=== PATIENT | female | born 1970 | race Caucasian/White ===

== ENCOUNTER 2024-09-17 13:19 | Emergency (ER) | payer BC, MEDICAID ==
[2024-09-17 14:18] LABS: #Basophils 0.1 thou/uL (0.0-0.2); #Eosinophils 0.1 thou/uL (0.0-0.7); #Lymphocytes 1.8 thou/uL (1.20-3.40); #Monocytes 0.3 thou/uL (0.11-0.59); #Neutrophils 2.3 thou/uL (1.40-6.50); %Basophils 1.1 % (0.0-1.0); %Eosinophils 2.5 % (0.0-10.0); %Lymphocytes 39.7 % (21.0-51.0); %Monocytes 7.4 % (0.0-10.0); %Neutrophils 49.3 % (42.0-75.0); Hematocrit 40.5 % (36.0-47.0); Hemoglobin 13.5 g/dL (12.0-16.0); Mean Corpuscular HGB CONC 33.3 g/dL (32.0-36.0); Mean Corpuscular Hemoglobin 31.7 pg (27.0-31.0); Mean Platelet Volume 7.5 fL (7.4-10.4); Platelet Count 260 10x3/uL (130-400); RBC Distribution Width 11.3 % (11.5-14.5); Red Blood Cell (RBC) Count 4.26 mill/uL (4.20-5.40); White Blood Cell (WBC) Count 4.6 10x3/uL (4.8-10.8)
[2024-09-17 14:30] LABS: ALT (SGPT) 15 U/L (8-55); AST (SGOT) 18 U/L (5-34); Albumin 4.6 g/dL (3.5-5.0); Alkaline Phosphatase 88 U/L (40-110); Anion Gap 15 mmol/L (10-20); BUN (Urea Nitrogen) 17 mg/dL (9.8-20.1); Bilirubin, Total 0.5 mg/dL (0.2-1.2); Calc. Creatinine Clearance 0 mL/min (70-130); Calcium 10.3 mg/dL (7.8-10.44); Carbon Dioxide 25 mmol/L (22-29); Chloride 105 mmol/L (98-107); Estimated GFR 77; Globulin 3.4 g/dL (2.4-3.5); Glucose 87 mg/dL (70-105); Potassium 4.2 mmol/L (3.5-5.1); Sodium 141 mmol/L (136-145)
[2024-09-17 14:31] LABS: Troponin I 0.012 ng/mL (< 0.028)
[2024-09-17 14:32] LABS: Bilirubin Negative (Negative); Blood, Urine Negative (Negative); Clarity Clear (Clear); Glucose, Urine (Dipstick) Negative (Negative); Ketone, Urine Negative (Negative); Leukocyte Negative (Negative); Nitrite Negative (Negative); Protein, Urine (Dipstick) Negative (Neg-Trace); Urobilinogen 0.2 mg/dL (Less than 2)
[2024-09-17 14:41] LABS: Amphetamine Not Detected (NotDetected); Barbiturates Screen Not Detected (NotDetected); Benzodiazepine Screen Not Detected (NotDetected); Cocaine Metabolite Screen Not Detected (NotDetected); Methadone Not Detected (NotDetected); Methamphetamine Not Detected (NotDetected); Opiate Screen Not Detected (NotDetected); Oxycodone Screen Not Detected (NotDetected); Phencyclidine (PCP) Not Detected (NotDetected); THC/Cannabinoid Screen Not Detected (NotDetected); Tricyclic Screen Not Detected (NotDetected)
[2024-09-17 14:44] LABS: Bacteria/HPF 1+ HPF (None Seen); CAUTI Indications for Culture Pelvic or flank pain; RBC/HPF 0-3 HPF (0-3); Squamous Epithelial 0-3 HPF (0-3); WBC/HPF 0-3 HPF (0-3)
[2024-09-17 14:46] LABS: Urine Culture Reflex No No
== END 2024-09-17 15:01 | disposition home or self-care (01) ==
LOC: MADERS 13:19
DX: Z71.1 Person with feared health complaint in whom no diagnosis is made (principal); R05.9 Cough, unspecified; R42 Dizziness and giddiness; R29.700 NIHSS score 0; Z87.891 Personal history of nicotine dependence
CPT/HCPCS: 36415; 71046; 80053; 80306; 81001; 84484; 85025; 85379; 87428; 93005